=== PATIENT | male | born 1990 | race Caucasian/White ===

== ENCOUNTER 2024-03-17 14:07 | Emergency (ER) | payer OTHER, SELFPAY ==
[2024-03-17 14:11] VITALS: BP 115/88
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
[2024-03-17] MEDS: TYLENOL 1000 MG PO (15:37)
[2024-03-17] MEDS: MOTRIN 600 MG PO (15:38)
[2024-03-17 16:32] VITALS: BP 120/73
== END 2024-03-17 17:25 | disposition home or self-care (01) ==
LOC: EMR 14:07
PROVIDERS: EMERGENCY PHYSICIAN Emergency Medicine
DX: M25.532 Pain in left wrist (principal); M25.531 Pain in right wrist; T14.8XXA Other injury of unspecified body region, initial encounter; V18.0XXA Pedal cycle driver injured in noncollision transport accident in nontraffic accident, initial encounter; Y93.55 Activity, bike riding
CPT/HCPCS: 99284; 29125; 71046; 73030; 73110